=== PATIENT | female | born 1985 | race Caucasian/White ===

== ENCOUNTER 2017-07-06 11:13 | Observation (INO) | payer OTHER ==
[~2017-07-06] VITALS: Ht 152.4 cm; Wt 65.9 kg
[~2017-07-06 11:13] MED LIST: IBUP-1222 PO; OXYC-302 PO
[2017-07-06 11:38] VITALS: BP 108/104
[2017-07-06 12:50] LABS: HEMOGLOBIN 11.6 g/dL (11.7-16.4); WHITE BLOOD COUNT 8.4 x10^3/uL (3.4-10)
[2017-07-06 13:01] LABS: ASPARTATE AMINO TRANSFERASE 22 U/L (15-37); BLOOD UREA NITROGEN 9 mg/dL (7-18)
== END 2017-07-06 15:32 | disposition home or self-care (01) ==
LOC: LDOP 11:13 → LDIP 13:22
PROVIDERS: ADMIT Obstetrics & Gynecology; ATTEND Obstetrics & Gynecology
DX: O13.4 Gestational [pregnancy-induced] hypertension without significant proteinuria, complicating childbirth (principal); Z3A.35 35 weeks gestation of pregnancy
CPT/HCPCS: 36415; 59025; 80053; 81003; 81050; 82248; 82570; 84156; 84550; 85025; 99211; G0378; G0463

== ENCOUNTER 2017-07-07 12:31 | Outpatient (CLI) | payer OTHER | END 2017-07-07 14:09 | disposition home or self-care (01) | LOC: LDOP 12:31 | PROVIDERS: ATTEND Obstetrics & Gynecology | DX: O13.9 Gestational [pregnancy-induced] hypertension without significant proteinuria, unspecified trimester (principal); Z3A.00 Weeks of gestation of pregnancy not specified | CPT/HCPCS: 59025; 99211; G0463 ==

== ENCOUNTER 2017-08-28 08:55 | Inpatient (IN) | payer OTHER ==
[~2017-08-28] VITALS: Ht 152.4 cm; Wt 60.3 kg
[~2017-08-28 08:55] MED LIST changes: +LABE200T3 PO; +NIFE30TA2 PO
[2017-08-28] MEDS ORDERED: SODIUM CHLORIDE 0.9% 1,000 ML IV ONE (09:40)
[2017-08-28 09:57] LABS: BASOPHILS # (AUTO) 0.03 x10^3/uL (0-0.1); BASOPHILS % (AUTO) 0 % (0-1); EOSINOPHILS # (AUTO) 0.07 x10^3/uL (0-0.4); EOSINOPHILS % (AUTO) 1 % (1-7); LYMPHOCYTES # (AUTO) 1.17 x10^3/uL (1-3.4); LYMPHOCYTES % (AUTO) 18 % (22-44); MD NO; MEAN CORPUSCULAR HEMOGLOBIN 26.5 pg (27.0-34.8); MEAN CORPUSCULAR HGB CONC 32.1 g/dL (32.4-35.8); MEAN CORPUSCULAR VOLUME 82.4 fL (80-100); MONOCYTES # (AUTO) 0.26 x10^3/uL (0.2-0.8); MONOCYTES % (AUTO) 4 % (2-9); NEUTROPHILS % (AUTO) 76 % (42-75); PLATELET COUNT 377 x10^3/uL (130-400); RED BLOOD COUNT 3.72 x10^6/uL (3.82-5.3); RED CELL DISTRIBUTION WIDTH 17.9 % (9.6-15.2)
[2017-08-28] MEDS ORDERED: MORPHINE SULFATE 4 MG/ML, 1ML IVPush PRN (10:00)
[2017-08-28] MEDS ORDERED: SODIUM CHLORIDE FLUSH 10ML SYR IVF ONE (10:00)
[2017-08-28] MEDS ORDERED: ONDANSETRON 2MG/ML, 2ML IVPush ONE (10:00)
[2017-08-28] MEDS ORDERED: SODIUM CHLORIDE 0.9% 1,000ML IVBOLUS ONE ×2 (10:00→12:00)
[2017-08-28 10:05] LABS: INTERNATIONAL NORMALIZED RATIO 1.04 (0.93-1.1); PROTHROMBIN TIME 10.7 Seconds (9.6-11.5)
[2017-08-28 10:08] LABS: ALANINE AMINOTRANSFERASE 21 U/L (12-78); ALBUMIN 3.2 g/dL (3.4-5.0); ANION GAP 6 mmol/L (5-15); CALCIUM 7.8 mg/dL (8.5-10.1); CHLORIDE 109 mmol/L (98-107); CREATININE 0.58 mg/dL (0.55-1.02)
[2017-08-28 10:13] LABS: ALKALINE PHOSPHATASE 103 U/L (45-117); BILIRUBIN,TOTAL 0.3 mg/dL (0.2-1.0); TOTAL PROTEIN 7.1 g/dL (6.4-8.2)
[2017-08-28] MEDS ORDERED: HYDROmorphone 2 MG/ML, 1ML ONE (10:30)
[2017-08-28] MEDS ORDERED: ONDANSETRON 2MG/ML, 2ML ONE ×2 (10:36→13:47)
[2017-08-28] MEDS ORDERED: MORPHINE SULFATE 4 MG/ML, 1ML ONE ×2 (10:36→12:05)
[2017-08-28 10:53] LABS: MICROSCOPIC AUTO
[2017-08-28 10:54] LABS: CULTURE INDICATED? NO
[2017-08-28] MEDS ORDERED: MISOPROSTOL 200 MCG TABLET PO ONE (11:30)
[2017-08-28] MEDS ORDERED: HYDROcodone/APAP 5/325 TABLET ONE (11:42)
[2017-08-28] MEDS ORDERED: HYDROcodone/APAP 5/325 TABLET PO ONE (12:00)
[2017-08-28] MEDS ORDERED: MIDAZOLAM 1 MG/ML, 2ML ONE (13:15)
[2017-08-28] MEDS ORDERED: FENTANYL PF 100 MCG/2ML ONE (13:15)
[2017-08-28] MEDS ORDERED: SILVER NITRATE STICK TP ONE (13:27)
[2017-08-28] MEDS ORDERED: OXYTOCIN 10 UNITS/ML, 1ML ONE (13:27)
[2017-08-28] MEDS ORDERED: METHYLERGONOVINE 0.2 MG/ML IM ONE (13:27)
[2017-08-28] MEDS ORDERED: MISOPROSTOL 200 MCG TABLET ONE (13:27)
[2017-08-28] MEDS ORDERED: PROPOFOL 10 MG/ML, 20ML ONE (13:47)
[2017-08-28] MEDS ORDERED: DEXAMETHASONE 4 MG/ML, 1ML ONE (13:47)
[2017-08-28] MEDS ORDERED: CEFAZOLIN 1,000 MG ONE (13:47)
[2017-08-28] MEDS ORDERED: ALBUTEROL SULFATE 2.5 MG/3 ML NPPB PRN (14:30)
[2017-08-28] MEDS ORDERED: ACETAMINOPHEN 325 MG TABLET PO PRN (14:30)
[2017-08-28] MEDS ORDERED: HYDROmorphone 1 MG/ML, 1ML IV PRN (14:30)
[2017-08-28] MEDS ORDERED: OXYcodone 5 MG/5 ML ORAL.SOL UDC PO PRN (14:30)
[2017-08-28] MEDS ORDERED: hydrALAzine 20 MG/ML, 1ML IV PRN (14:30)
[2017-08-28] MEDS ORDERED: PROMETHAZINE 12.5 MG SUPP PR PRN (14:30)
[2017-08-28] MEDS ORDERED: MEPERIDINE/PF 25MG/0.5ML IVPush PRN (14:30)
[2017-08-28] MEDS ORDERED: LABETALOL 5MG/ML, 20ML IV PRN (14:30)
[2017-08-28] MEDS ORDERED: FENTANYL PF 100 MCG/2ML IV PRN (14:30)
[2017-08-28] MEDS ORDERED: MIDAZOLAM 1 MG/ML, 2ML IV PRN (14:30)
[2017-08-28] MEDS ORDERED: ACETAMINOPHEN 650 MG/20.3 ML UDC ONE (14:42)
[2017-08-28] MEDS ORDERED: OXYcodone 5 MG/5 ML ORAL.SOL UDC ONE (14:42)
[2017-08-28] MEDS ORDERED: IBUP-1222 PO (15:58)
[2017-08-28] MEDS ORDERED: morphine SULFATE 10 MG/ML, 1ML IV PRN (16:00)
[2017-08-28] MEDS ORDERED: LACTATED RINGERS 1,000 ML IV SCH (16:00)
[2017-08-28] MEDS ORDERED: IBUPROFEN 600 MG TABLET PO SCH (16:00)
[2017-08-28] MEDS ORDERED: KETOROLAC 30 MG/1 ML IV PRN (16:00)
[2017-08-28] MEDS ORDERED: OXYcodone/APAP 5/325MG TABLET PO PRN (16:00)
[2017-08-28] MEDS ORDERED: ONDANSETRON 2MG/ML, 2ML IV PRN (16:00)
[2017-08-28] MEDS ORDERED: METH0.2T45 PO (16:05)
[2017-08-28 16:40] VITALS: BP 105/72
== END 2017-08-28 18:30 | disposition home or self-care (01) | DRG 983 ==
LOC: ED 10:52 → EDIP 12:01 → 4NOR 15:40
PROVIDERS: ADMIT Obstetrics & Gynecology; ATTEND Obstetrics & Gynecology
PROC: 10D17ZZ Extraction of Products of Conception, Retained, Via Natural or Artificial Opening (ICD-10-PCS; principal; 2017-08-28 13:30)
DX: L76.32 Postprocedural hematoma of skin and subcutaneous tissue following other procedure (principal); N92.0 Excessive and frequent menstruation with regular cycle; D64.9 Anemia, unspecified; Y83.8 Other surgical procedures as the cause of abnormal reaction of the patient, or of later complication, without mention of misadventure at the time of the procedure; Z98.51 Tubal ligation status
CPT/HCPCS: 36415; 76830; 80053; 81001; 84703; 85025; 85610; 85730; 86850; 86900; 88305; 93005; 96361; 96374; 96375; J0690; J1100; J2250; J2405; J2704; J3010; J2210; J2590; J7030

== ENCOUNTER 2018-10-26 08:34 | Emergency (ER) | payer MEDICAID, OTHER ==
[~2018-10-26] VITALS: Ht 152.4 cm; Wt 60.7 kg
[~2018-10-26 08:34] MED LIST changes: -LABE200T3 PO; +LABE200T6 PO; +METH0.2T45 PO
[2018-10-26] MEDS ORDERED: ONDANSETRON ODT 4 MG PO ONE (09:00)
--- NOTE | 2018-10-26 09:03 | NUR ---
CUSTOMER STRATEGY MANAGER: PT TO ED ROOM 23 FROM [facility] IN [facility], PT GIVEN CUP FOR UA & CLEAN CATCH INSTRUCTIONS
[2018-10-26] MEDS ORDERED: ONDANSETRON ODT 4 MG ONE (09:13)
--- NOTE | 2018-10-26 09:21 | NUR ---
PT AMBULATORY TO ROOM 23 W/ C/O N/V STARTED LAST NOC AT 2300. PT STATES BM AT 0300 "NOT HARD BUT NOT WATERY". PT ALSO HAS C/O RLQ ABD PAIN WORSE ON PALPATION. PT DENIES ABD HX. HX 3 C SECTIONS. PT RESTING ON GURNEY. NADN. VSS. WARM BLANKET PROVIDED.
[2018-10-26 09:38] LABS: MICROSCOPIC INDICATED
[2018-10-26 09:46] LABS: CULTURE INDICATED? YES
[2018-10-26] MEDS ORDERED: PROMETHAZINE 25 MG/ML, 1ML ONE (09:56)
--- NOTE | 2018-10-26 09:58 | NUR ---
PT RESTING ON TERRENCE. NADN. COELLO. SPOKE W/ ERP ABOUT PT RLQ ABD PAIN AND CANCELLED LAB WORK.
[2018-10-26] MEDS ORDERED: PROMETHAZINE 25 MG/ML, 1ML IM ONE (10:00)
--- NOTE | 2018-10-26 10:01 | NUR ---
Reprot from BAR Arias. Patient resting comfortably. Conitnues to have C/O nausea. [employer]er[employer] admin by student nurse under the supervision of BAR Arias.
--- NOTE | 2018-10-26 10:51 | NUR ---
Patient states that nausea has improved.
[2018-10-26 10:59] VITALS: BP 139/88
--- NOTE | 2018-10-26 11:10 | NUR ---
Patient/Caregiver given discharge instructions and they have confirmed that they understand the instructions. Patient ambulatory with steady gait.
== END 2018-10-26 11:12 | disposition home or self-care (01) ==
LOC: ED 09:33
DX: R11.2 Nausea with vomiting, unspecified (principal); R10.84 Generalized abdominal pain; I10 Essential (primary) hypertension
CPT/HCPCS: 81001; 87086; 99283; Q0162

== ENCOUNTER 2019-11-03 12:23 | Emergency (ER) | payer MEDICAID ==
[~2019-11-03] VITALS: Ht 152.4 cm; Wt 54.8 kg
[2019-11-03 12:27] VITALS: BP 121/91
--- NOTE | 2019-11-03 12:36 | NUR ---
VITALS OBTAINED BY THIS TECH
== END 2019-11-03 13:52 | disposition home or self-care (01) ==
LOC: ED 13:09
DX: M54.5 Low back pain (principal); I10 Essential (primary) hypertension
CPT/HCPCS: 99282; 99283